=== PATIENT | male | born 1980 | race Caucasian/White ===

== ENCOUNTER 2017-06-12 18:07 | Emergency (ER) | payer BC, OTHER ==
[2017-06-12 18:42] VITALS: BMI 24.9
--- NOTE | 2017-06-12 21:30 | PDOC ---
History of Present Illness - General Chief Complaint: Pain, Acute Stated Complaint: STOMACH PAIN Time Seen by Provider: 06/12/17 20:35 - History of Present Illness Initial Comments: 06/12/17 21:08 CHIEF COMPLAINT: abd pain HISTORY OF PRESENT ILLNESS: 37 yo M with hx of HTN (but taken off meds a few years ago) presents to ED with abd pain x 3 days. Patient reports the pain started around 6:30 am three days ago and he felt as if he couldn't use the bathroom. He states that he was "dry heaving" but did not vomit. The next day the pain improved, but then today the pain returned. He describes the pain as intermittent and ranges between a 1-5. Patient denies any diarrhea and states he did have a normal bowel movement today. He reports a "varied" diet including healthy foods and junk food. PAST MEDICAL HISTORY: Denies past medical history FAMILY HISTORY: Denies SOCIAL HISTORY: "very little" alcohol use. Denies tobacco, illicit drug use. SURGICAL HISTORY: Denies ALLERGIES: No known drug allergies REVIEW OF SYSTEMS General/Constitutional: Denies fever or chills. Denies weakness. HEENT: Denies change in vision. Denies ear pain or discharge. Denies sore throat. Cardiovascular: Denies chest pain or shortness of breath. Respiratory: Denies cough, wheezing, or hemoptysis. Gastrointestinal: Abdominal pain x 3 days. Denies nausea, vomiting, diarrhea or constipation. Denies rectal bleeding. Genitourinary: Denies dysuria, frequency, or change in urination. Musculoskeletal: Denies neck or back pain. Neurologic: Denies headache PHYSICAL EXAM General Appearance: Well-appearing, appropriately dressed. No apparent distress. HEENT: EOMI, PERRLA. No conjunctival pallor. No photophobia, scleral icterus. Respiratory/Chest: Lungs CTAB. Cardiovascular: RRR. S1, S2. Gastrointestinal/Abdominal: Tenderness to epigastrum and to RLQ on deep palpation. Abdomen soft, non-distended. . No organomegaly, pulsatile mass, guarding, hernia, hepatomegaly, splenomegaly. Musculoskeletal/Extremities: Normal inspection. FROM of all extremities, normal capillary refill. Pelvis Stable. No CVA tenderness. No tenderness to extremities, pedal edema, swelling, erythema or deformity. Integumentary: Appropriate color, dry, warm. No cyanosis, erythema, jaundice or rash Neurologic: rn triage II-XII intact. Fully oriented, alert. Appropriate mood/affect. Motor strength 5/5. No appreciable EOM palsy, facial droop or sensory deficit. 06/13/17 06:42 Past History - Past Medical History Allergies/Adverse Reactions: Allergies Allergy/AdvReac Type Severity Reaction Status Date / Time No Known Allergies Allergy Verified 06/12/17 18:38 Home Medications: Ambulatory Orders Simethicone [Gas Relief 80] 80 mg PO TID PRN #21 tab.chew 06/12/17 CVA: No COPD: No DVT: No - Immunization History Immunization Up to Date: Yes - Suicide/Smoking/Psychosocial Hx Smoking History: Never smoked Have you smoked in the past 12 months: No Information on smoking cessation initiated: No Hx Alcohol Use: No Drug/Substance Use Hx: No Substance Use Type: None *Physical Exam - Vital Signs Last Vital Signs Temp Pulse Resp BP Pulse Ox 98.5 F 68 16 148/92 99 06/12/17 18:39 06/12/17 18:39 06/12/17 18:39 06/12/17 18:39 06/12/17 18:39 ED Treatment Course - LABORATORY CBC & Chemistry Diagram: 06/12/17 21:30 06/12/17 21:30 - RADIOLOGY Radiology Studies Ordered: Category Date Time Status PELVIC / BLADDER US [US] Stat Ultrasound 06/12/17 21:05 Ordered Medical Decision Making - Medical Decision Making 06/13/17 06:43 37 yo M with hx of HTN (but taken off meds a few years ago) presents to ED with abd pain x 3 days. -CBC, CMP, lipase -ULtrasound eval appendicitis Appendicitis not visualized on ultrasound. Labs unremarkable, patient VSS. Low suspicion for appy at this time, will give pepcid, fluids, simethicone and reevaluate. Patient reevaluated and states his pain has now resolved. Will discharge with simethicone rx and close f/u with GI. Advised patient to take medication as prescribed and follow up with GI if symptoms persist. Advised patient of signs and symptoms for return to ED. Patient verbalized understanding and agrees to plan. *DC/Admit/Observation/Transfer Diagnosis at time of Disposition: Abdominal pain Qualifiers: Abdominal location: generalized Qualified Code(s): R10.84 - Generalized abdominal pain - Discharge Dispostion Disposition: HOME Condition at time of disposition: Stable Admit: No - Prescriptions Prescriptions: Simethicone [Gas Relief 80] 80 mg PO TID PRN #21 tab.chew PRN Reason: Pain - Referrals Referrals: Tyrone Thornton MD [Staff Physician] - - Patient Instructions Printed Discharge Instructions: DI for Abdominal Pain-Adult Additional Instructions: Please take medications as prescribed. As discussed, if your symptoms persist past 3-5 days or severe pain returns, please follow up with gastroenterology. If you develop vomiting, diarrhea, rectal bleeding, fever, or any new or worsening symptoms, please return to the ER. - Post Discharge Activity
[2017-06-12 21:45] LABS: URINE APPEARANCE SLCLOUDY; URINE BILIRUBIN NEGATIVE (NEGATIVE); URINE BLOOD NEGATIVE (NEGATIVE); URINE COLOR YELLOW; URINE GLUCOSE (UA) NEGATIVE (NEGATIVE); URINE KETONE TRACE (NEGATIVE); URINE NITRITE NEGATIVE (NEGATIVE); URINE PROTEIN NEGATIVE (NEGATIVE); URINE UROBILINOGEN NEGATIVE mg/dL (0.2-1.0)
[2017-06-12 22:02] LABS: BASOPHIL 0.3 % (0-2.0); EOSINOPHIL 1.3 % (0-4.5); MCH 29.9 pg (25.7-33.7); MCHC 33.4 g/dl (32.0-35.9); MEAN CELL VOLUME 89.5 fl (80-96); MEAN PLT VOLUME 7.7 fl (7.5-11.1); NEUTROPHILS 40.3 % (42.8-82.8); PLATELET COUNT 249 K/MM3 (134-434); RDW 13.8 % (11.9-15.9); WHITE BLOOD COUNT 7.3 K/mm3 (4.0-10.0)
[2017-06-12 22:35] LABS: ALBUMIN 4.3 g/dl (3.4-5.0); ALK PHOS 55 U/L (45-117); AMYLASE 72 U/L (25-115); ANION GAP 6 (8-16); BILIRUBIN,TOTAL 0.5 mg/dL (0.2-1.0); CALCIUM 9.4 mg/dL (8.5-10.1); CO2 29 mmol/L (21-32); CREATININE 1.1 mg/dL (0.7-1.3); GLUCOSE,RANDOM 91 mg/dL (74-106); SGOT/AST 13 U/L (15-37); SGPT/ALT 20 U/L (12-78); TOT PROT 7.8 g/dl (6.4-8.2)
[2017-06-12] MEDS ORDERED: FAMOTIDINE 20 MG/50 ML IVPB 20 MG/50 ML MG IVPB ONE ×2 (22:47→23:07)
[2017-06-12] MEDS ORDERED: MAG HYDROX/AL HYDROX/SIMETH 355 ML ORAL.SUSP PO ONE (22:47)
[2017-06-12] MEDS ORDERED: SODIUM CHLORIDE 0.9% 1000 ML INFUS.BAG IV ONE (22:48)
[2017-06-12] MEDS ORDERED: SIMETHICONE 40 MG/0.6 ML BOTTLE PO ONE (22:48)
[2017-06-12] MEDS ORDERED: MAG HYDROX/AL HYDROX/SIMETH 30 ML UNIT-DOSE CUP ONE (23:07)
[2017-06-13 00:44] VITALS: BP 121/79; PULSE 78; TEMP 98.1
[2017-06-13 09:53] LABS: URINE LEUK ESTERASE Negative (NEGATIVE)
== END 2017-06-13 00:12 | disposition home or self-care (01) ==
LOC: JERFT 18:07 → JER 18:07
PROC: 3E033GC Introduction of Other Therapeutic Substance into Peripheral Vein, Percutaneous Approach (ICD-10-PCS; principal; 2017-06-12)
DX: R10.84 Generalized abdominal pain (principal); I10 Essential (primary) hypertension
CPT/HCPCS: 36415; 76856-TC; 80053; 81003; 82150; 83690; 84703; 85025; 87086; 99283-25